=== PATIENT | male | born 1995 ===

== ENCOUNTER 2021-11-11 08:21 | Emergency (ER) | payer OTHER ==
[2021-11-11 17:33] LABS: SARS-CoV-2 PCR by NAA Not Detected (NotDetected)
== END 2021-11-11 09:30 | disposition home or self-care (01) ==
LOC: ERS 08:21
DX: R50.9 Fever, unspecified (principal); Z20.822 Contact with and (suspected) exposure to COVID-19
CPT/HCPCS: 99283; U0003; U0005